=== PATIENT | female | born 1960 | race African-American/Black ===

== ENCOUNTER → 2016-08-23 | Outpatient (CLI) | payer BC ==
[~2016-08-23] MED LIST: COLACE 100100 MG/CAP PO; DEXILANT60 MG PO; HCTZ12.5TAB PO; LIPITOR 10MG10 MG PO; MULTIPLE VITAMI1 CAP PO; NORCO 325 MG-51 TAB PO; PRINIVIL10 MG PO; TYLENOL 500MG500 MG PO; VITAMIN D31000 I1; VITAMINE200; VTAMINC250TA
== END ==
LOC: MC.RAD 14:39
DX: Z12.31 Encounter for screening mammogram for malignant neoplasm of breast (principal)

== ENCOUNTER → 2017-01-12 | Outpatient (CLI) | payer BC ==
[2017-01-12 14:49] LABS: HEMATOCRIT 39.1 % (37.0-47.0); HEMOGLOBIN 13.6 g/dl (12.5-16.0); MEAN CELL VOLUME 96 fl (80.0-100.0); MEAN CORPUSCULAR HEMOGLOBIN 33 pg (27.0-31.0); MEAN CORPUSCULAR HGB CONC 35 g/dl (33.0-37.0); MEAN PLATELET VOLUME 10.3 fl (7.4-10.4); PLATELET COUNT 231 K/mm3 (130-400); RED BLOOD COUNT 4.09 M/mm3 (4.10-5.30); REDCELL DISTRIBUTION WIDTH-CV 12.8 % (11.5-14.5); WHITE BLOOD COUNT 6.3 K/mm3 (4.8-10.8)
[2017-01-12 15:02] LABS: ADJUSTED CALCIUM 9.6 mg/dL (8.4-10.2); ALBUMIN 4.6 gm/dL (3.5-5.0); BILIRUBIN,TOTAL 0.9 mg/dL (0.0-1.0); CALCIUM 10.1 mg/dL (8.4-10.2); CREATININE, serum 0.49 mg/dL (0.52-1.25); POTASSIUM 3.6 mmol/L (3.4-5.0); TOTAL PROTEIN 8.2 gm/dL (6.4-8.2)
== END ==
LOC: COL.RAD 14:19
PROVIDERS: Internal Medicine
DX: K86.89 Other specified diseases of pancreas (principal); E27.8 Other specified disorders of adrenal gland; Q63.2 Ectopic kidney; K76.0 Fatty (change of) liver, not elsewhere classified; M47.816 Spondylosis without myelopathy or radiculopathy, lumbar region; M48.07 Spinal stenosis, lumbosacral region; Z90.710 Acquired absence of both cervix and uterus
CPT/HCPCS: Q9967

== ENCOUNTER → 2017-01-19 | Outpatient (CLI) | payer BC, OTHER ==
[2017-01-19] VITALS (19 sets, daily range): BP systolic 104–3119; BP diastolic 36–94; PULSE 52–89
[~2017-01-19] VITALS: Ht 165.1 cm; Wt 97.0 kg
[2017-01-19 07:51] LABS: BASO % 0.8 % (0.0-2.0); EOS # 0.1 (0.0-0.7); EOS % 1.9 % (0-4.0); GRAN # 2.6 (1.4-6.5); GRAN % 54.4 % (42.2-75.2); HEMATOCRIT 39.9 % (37.0-47.0); HEMOGLOBIN 13.7 g/dl (12.5-16.0); LYMPH # 1.7 (1.2-3.4); LYMPH % 35.6 % (20.0-51.0); MEAN CELL VOLUME 98 fl (80.0-100.0); MEAN CORPUSCULAR HEMOGLOBIN 34 pg (27.0-31.0); MEAN CORPUSCULAR HGB CONC 34 g/dl (33.0-37.0); MEAN PLATELET VOLUME 10.6 fl (7.4-10.4); MONO # 0.3 (0.1-0.6); MONO % 6.9 % (1.7-9.3); PLATELET COUNT 241 K/mm3 (130-400); RED BLOOD COUNT 4.07 M/mm3 (4.10-5.30); REDCELL DISTRIBUTION WIDTH-CV 12.7 % (11.5-14.5); WHITE BLOOD COUNT 4.8 K/mm3 (4.8-10.8)
[2017-01-19 07:53] LABS: INR 1.2 (0.8-3.0); PROTHROMBIN TIME 12.8 SECONDS (9.7-12.8)
[2017-01-19 07:58] LABS: CREATININE, serum 0.49 mg/dL (0.52-1.25)
== END ==
LOC: COL.RAD 06:25
PROVIDERS: Internal Medicine
DX: C25.1 Malignant neoplasm of body of pancreas (principal); Z90.710 Acquired absence of both cervix and uterus; Z80.42 Family history of malignant neoplasm of prostate
CPT/HCPCS: J2250; J3010

== ENCOUNTER 2017-03-22 06:29 | Day surgery (SDC) | payer BC ==
[~2017-03-22] VITALS: Ht 165.1 cm; Wt 93.4 kg
[~2017-03-22 06:29] MED LIST changes: -COLACE 100100 MG/CAP PO; -MULTIPLE VITAMI1 CAP PO; -TYLENOL 500MG500 MG PO; -VITAMIN D31000 I1; -VITAMINE200; -VTAMINC250TA
[2017-03-22 06:51] VITALS: BP 125/75; PULSE 66; TEMP 98.1
[2017-03-22] MEDS ORDERED: VTAMINC250TA (07:29)
[2017-03-22] MEDS ORDERED: TYLENOL 500MG500 MG PO (07:29)
[2017-03-22] MEDS ORDERED: VITAMINE200 (07:30)
[2017-03-22] MEDS ORDERED: VITAMIN D31000 I1 (07:31)
[2017-03-22] MEDS ORDERED: MULTIPLE VITAMI1 CAP PO (07:31)
[2017-03-22 09:05] VITALS: BP 132/59; PULSE 57; TEMP 97.4
[2017-03-22 09:15] VITALS: BP 156/72; PULSE 57
[2017-03-22] MEDS ORDERED: NORCO 325 MG-51 TAB PO (09:18)
[2017-03-22] MEDS ORDERED: COLACE 100100 MG/CAP PO (09:19)
[2017-03-22 09:30] VITALS: BP 140/82; PULSE 55
[2017-03-22 09:45] VITALS: BP 136/71; PULSE 60
== END 2017-03-22 10:26 | disposition home or self-care (01) ==
LOC: SDCO 06:29
DX: C25.9 Malignant neoplasm of pancreas, unspecified (principal); E11.9 Type 2 diabetes mellitus without complications; Z80.6 Family history of leukemia; Z80.42 Family history of malignant neoplasm of prostate; Z80.0 Family history of malignant neoplasm of digestive organs
CPT/HCPCS: C1788; J1644; J2704; J3010; J7030

== ENCOUNTER → 2017-10-18 | Outpatient (CLI) | payer BC ==
[~2017-10-18] MED LIST changes: +COLACE 100100 MG/CAP PO; +MULTIPLE VITAMI1 CAP PO; +TYLENOL 500MG500 MG PO; +VITAMIN D31000 I1; +VITAMINE200; +VTAMINC250TA
== END ==
LOC: MC.RAD 14:40
DX: Z12.31 Encounter for screening mammogram for malignant neoplasm of breast (principal)

== ENCOUNTER → 2017-12-07 | Outpatient (CLI) | payer BC | LOC: COL.VAS 10:12 | DX: C25.1 Malignant neoplasm of body of pancreas (principal); M79.89 Other specified soft tissue disorders ==

== ENCOUNTER → 2018-07-05 | Outpatient (CLI) | payer BC | LOC: COL.RAD 14:00 | DX: C25.1 Malignant neoplasm of body of pancreas (principal); C78.6 Secondary malignant neoplasm of retroperitoneum and peritoneum; C77.5 Secondary and unspecified malignant neoplasm of intrapelvic lymph nodes; R18.0 Malignant ascites | CPT/HCPCS: Q9967 ==

== ENCOUNTER → 2018-07-13 | Outpatient (CLI) | payer BC ==
--- NOTE | 2018-07-12 08:56 | NUR ---
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
[~2018-07-13] VITALS: Ht 165.1 cm; Wt 92.5 kg
[~2018-07-13] MED LIST changes: +CIPRO 500MG TA500 MG PO; +GLUCOPHAGE1000 MG PO; +MORPHINE 1515 MG/TAB PO; +VITAMIN E1000 U/CAP PO; -VTAMINC250TA; +VTAMINC250TA PO
[2018-07-13 11:45] VITALS: BP 136/78; PULSE 92
[2018-07-13 12:32] VITALS: BP 155/91; PULSE 71
--- NOTE | 2018-07-13 12:50 | NUR ---
Pt out to car per ambulation. Denies pain at this time. Daughter here to pick pt up.
== END ==
LOC: COL.RAD 11:24
DX: C25.9 Malignant neoplasm of pancreas, unspecified (principal); R18.8 Other ascites

== ENCOUNTER → 2018-08-10 | Outpatient (CLI) | payer BC ==
[~2018-08-10] VITALS: Ht 165.1 cm; Wt 98.2 kg
[~2018-08-10] MED LIST changes: +EXCEDRIN1 TAB PO; +MOTRIN 400400 MG/TAB PO
[2018-08-10 09:26] VITALS: BP 130/74; PULSE 113
[2018-08-10 10:40] VITALS: BP 152/89; PULSE 97
== END ==
LOC: COL.RAD 09:09
DX: C25.1 Malignant neoplasm of body of pancreas (principal)

== ENCOUNTER 2018-08-16 14:06 | Emergency (ER) | payer BC ==
[~2018-08-16] VITALS: Ht 165.1 cm; Wt 94.4 kg
[2018-08-16 14:18] VITALS: TEMP 99.1
[2018-08-16 15:06] LABS: COLLECTION METHOD CLEAN CATCH
[2018-08-16 15:14] LABS: MUCOUS Present /lpf; PH 5 (5-8); SQUAMOUS EPITHELIAL 0-2 /hpf; URINE APPEARANCE Clear; URINE BACTERIA None Seen /hpf; URINE BILIRUBIN Negative (NEGATIVE); URINE BLOOD Negative (NEGATIVE); URINE COLOR Yellow; URINE GLUCOSE Negative (NEGATIVE); URINE KETONE Trace (NEGATIVE); URINE LEUKOCYTE ESTERASE 1+ (NEGATIVE); URINE NITRATE Negative (NEGATIVE); URINE PROTEIN(semi-quant) Negative (NEGATIVE); URINE RBC 0-2 /hpf
[2018-08-16 15:22] LABS: BASO % 0.5 % (0.0-2.0); EOS # 0.1 (0.0-0.7); EOS % 0.8 % (0-4.0); GRAN # 4.3 (1.4-6.5); GRAN % 65.9 % (42.2-75.2); HEMOGLOBIN 11.4 g/dl (12.5-16.0); LYMPH # 1.4 (1.2-3.4); LYMPH % 21.6 % (20.0-51.0); MEAN CELL VOLUME 97 fl (80.0-100.0); MEAN CORPUSCULAR HEMOGLOBIN 31 pg (27.0-31.0); MEAN CORPUSCULAR HGB CONC 32 g/dl (33.0-37.0); MEAN PLATELET VOLUME 9.3 fl (7.4-10.4); MONO # 0.7 (0.1-0.6); MONO % 10.7 % (1.7-9.3); PLATELET COUNT 325 K/mm3 (130-400); RED BLOOD COUNT 3.65 M/mm3 (4.10-5.30); REDCELL DISTRIBUTION WIDTH-CV 14.5 % (11.5-14.5)
[2018-08-16 15:23] LABS: HEMATOCRIT 35.5 % (37.0-47.0)
[2018-08-16 15:39] LABS: ALANINE AMINOTRANSFERASE 9 U/L (9-52); ALBUMIN 3.3 gm/dL (3.5-5.0); ALKALINE PHOSPHATASE 97 U/L (50-136); ANION GAP 8 mmol/L (7-16); AST,SGOT 24 U/L (15-37); BILIRUBIN,TOTAL 0.3 mg/dL (0.0-1.0); BLOOD UREA NITROGEN 9 mg/dL (7-17); C-REACTIVE PROTEIN 8.1 mg/dL (0.0-0.9); CALCIUM 9.3 mg/dL (8.4-10.2); CARBON DIOXIDE 27 mmol/L (22-30); CHLORIDE 99 mmol/L (98-107); CREATININE, serum 0.48 mg/dL (0.52-1.25); GLUCOSE 98 mg/dL (74-106); LIPASE 29 U/L (23-300); POTASSIUM 4.2 mmol/L (3.4-5.0); SODIUM 134 mmol/L (137-145); TOTAL PROTEIN 7.2 gm/dL (6.4-8.2)
[2018-08-16 15:51] LABS: TROPONIN-I < 0.012 ng/mL (0.000-0.035)
[2018-08-16 18:00] VITALS: BP 118/77; PULSE 99
== END 2018-08-16 18:13 | disposition home or self-care (01) ==
LOC: COL.ER 14:06
PROVIDERS: Emergency Medicine
DX: C25.9 Malignant neoplasm of pancreas, unspecified (principal); C79.9 Secondary malignant neoplasm of unspecified site; K86.81 Exocrine pancreatic insufficiency; E11.9 Type 2 diabetes mellitus without complications; I10 Essential (primary) hypertension; Z79.1 Long term (current) use of non-steroidal anti-inflammatories (NSAID); Z79.84 Long term (current) use of oral hypoglycemic drugs; Z87.891 Personal history of nicotine dependence; Z87.19 Personal history of other diseases of the digestive system
CPT/HCPCS: J1170; J2405; Q9967

== ENCOUNTER → 2018-08-21 | Outpatient (CLI) | payer BC ==
[~2018-08-21] VITALS: Ht 165.1 cm; Wt 97.7 kg
[2018-08-21 11:37] VITALS: BP 125/83; PULSE 121
[2018-08-21 13:25] VITALS: BP 127/85; PULSE 107
[2018-08-21 13:37] LABS: PERITONEAL -POLYMORPHONUCLEAR 16.3 % (0-25); PERITONEAL FLUID RBC 7000 /mm3 (0-0)
--- NOTE | 2018-08-21 13:40 | NUR ---
pt out to car per wheelchair. Reports feeling better. Verbalized understanding of discharge instructions. Pt did not want a copy of instructions.
== END ==
LOC: COL.RAD 11:25
PROVIDERS: Internal Medicine
DX: C25.1 Malignant neoplasm of body of pancreas (principal)

== ENCOUNTER 2018-09-05 13:58 | Inpatient (IN) | payer BC ==
[~2018-09-05] VITALS: Ht 167.6 cm; Wt 97.6 kg
[2018-09-05 14:58] LABS: BASO % 0.2 % (0.0-2.0); EOS % 0.2 % (0-4.0); GRAN # 7.2 (1.4-6.5); GRAN % 70.4 % (42.2-75.2); HEMOGLOBIN 10.3 g/dl (12.5-16.0); LYMPH # 0.8 (1.2-3.4); LYMPH % 7.6 % (20.0-51.0); MEAN CELL VOLUME 95 fl (80.0-100.0); MEAN CORPUSCULAR HEMOGLOBIN 31 pg (27.0-31.0); MEAN CORPUSCULAR HGB CONC 32 g/dl (33.0-37.0); MEAN PLATELET VOLUME 9.4 fl (7.4-10.4); MONO % 19.1 % (1.7-9.3); PLATELET COUNT 325 K/mm3 (130-400); RED BLOOD COUNT 3.37 M/mm3 (4.10-5.30); REDCELL DISTRIBUTION WIDTH-CV 15.7 % (11.5-14.5)
[2018-09-05 15:00] LABS: ALANINE AMINOTRANSFERASE 8 U/L (9-52); ALBUMIN 3.4 gm/dL (3.5-5.0); ALKALINE PHOSPHATASE 150 U/L (50-136); ANION GAP 13 mmol/L (7-16); AST,SGOT 25 U/L (15-37); BILIRUBIN,TOTAL 0.3 mg/dL (0.0-1.0); BLOOD UREA NITROGEN 59 mg/dL (7-17); CALCIUM 9.1 mg/dL (8.4-10.2); CARBON DIOXIDE 20 mmol/L (22-30); CHLORIDE 91 mmol/L (98-107); GLUCOSE 100 mg/dL (74-106); SODIUM 124 mmol/L (137-145); TOTAL PROTEIN 7.1 gm/dL (6.4-8.2)
[2018-09-05 15:03] LABS: POTASSIUM 6.7 mmol/L (3.4-5.0)
[2018-09-05 15:04] LABS: CREATININE, serum 6.15 mg/dL (0.52-1.25)
[2018-09-05 15:13] LABS: TROPONIN-I < 0.012 ng/mL (0.000-0.035)
[2018-09-05 15:24] LABS: COLLECTION METHOD CLEAN CATCH
[2018-09-05 15:33] LABS: HYALINE CAST >12 /lpf; MUCOUS Present /lpf; PH 5 (5-8); SQUAMOUS EPITHELIAL 0-2 /hpf; URINE APPEARANCE Cloudy; URINE BACTERIA None Seen /hpf; URINE BILIRUBIN Negative (NEGATIVE); URINE BLOOD 2+ (NEGATIVE); URINE COLOR Amber; URINE GLUCOSE Negative (NEGATIVE); URINE KETONE Negative (NEGATIVE); URINE LEUKOCYTE ESTERASE Trace (NEGATIVE); URINE NITRATE Negative (NEGATIVE); URINE PROTEIN(semi-quant) 2+ (NEGATIVE); URINE UROBILINOGEN Negative (NEGATIVE); URINE WBC 0-2 /hpf
--- NOTE | 2018-09-05 16:35 | NUR ---
PATIENT ARRIVED TO ICU ROOM 4 VIA STRETCHER. SHE WAS ABLE TO STAND AND TRANSFER TO THE BED. SHE STATES HER PAIN IN HER ABDOMEN IS RELIEVED WHEN SHE STANDS UP. SHE WAS PLACED ON THE X RAY EXAMINER OF AIRCRAFT. VSS AT THIS TIME. IV TO INT. AT BEDSIDE. PATIENT ORIENTED TO ROOM. ICU RULES REVIEWED.
[2018-09-05 16:50] VITALS: BP 99/56; PULSE 106; TEMP 97.6
[2018-09-05 17:49] LABS: CALCIUM 8.5 mg/dL (8.4-10.2); POTASSIUM 5.5 mmol/L (3.4-5.0)
[2018-09-05 17:51] LABS: CREATININE, serum 5.66 mg/dL (0.52-1.25)
[2018-09-05 17:54] LABS: CREATININE, serum 5.66 mg/dL (0.52-1.25)
[2018-09-05 18:04] LABS: FRACTIONAL EXCRETION OF NA+ 0.5 %
[2018-09-05 18:05] LABS: URINE PROTEIN:CREAT RATIO 0.8 (0.00-0.14)
--- NOTE | 2018-09-05 19:25 | NUR ---
Bedside report received from HUMZA Begum. Patient care received.
--- NOTE | 2018-09-05 19:30 | NUR ---
REPORT GIVEN TO HUMZA ORONA.
[2018-09-05 20:00] VITALS: BP 82/64; PULSE 108; TEMP 97.8
--- NOTE | 2018-09-05 21:06 | NUR ---
Patientreporting 10/10 abdominal pain. Patient audibly moaning. Reports not tolerating lying down and has been repeatedly standing up and sitting down in attempt to find a more comfortable position. Spoke with Hospitalist and received order to give IV fentanyl X 1 dose. Will continue to monitor.
[2018-09-05 21:50] VITALS: BP 94/63; PULSE 106
--- NOTE | 2018-09-05 23:45 | NUR ---
Called E-ICU to report that patient is complaining of pain around urethra due to catheter. Patient reports it feels like it's leaking. This nurse has not observed any leakage. Patient has been unable to find a comfortable position due to catheter pain. Has asked this nurse multiple times about removing catheter. Explained to patient the importance of the catheter to have accurate urine measurments. Awaiting orders.
[2018-09-06] VITALS (18 sets, daily range): BP systolic 60–116; BP diastolic 42–96; PULSE 69–134; TEMP 97.6–97.9
[2018-09-06 00:49] LABS: CALCIUM 8.5 mg/dL (8.4-10.2); POTASSIUM 5.6 mmol/L (3.4-5.0)
[2018-09-06 00:51] LABS: CREATININE, serum 5.21 mg/dL (0.52-1.25)
--- NOTE | 2018-09-06 01:00 | NUR ---
Did not notify provider regarding critical creatine result as lab value trending downwards.
--- NOTE | 2018-09-06 01:03 | NUR ---
Removed marquez catheter; will wait one one then will replace and use lidocaine jelly 2%. Order per Dr. Smith.
--- NOTE | 2018-09-06 01:30 | NUR ---
Called E-ICU to report BMP potassium results. Also requested a stool softner or suppository to assist with patient having a bowel movement. Reported that patient complaining of sharp upper abdominal pain. Patient states pain feels like "gas pains". Assisted to the bedside commode.
--- NOTE | 2018-09-06 02:35 | NUR ---
16 F marquez catheter placed. Tolerated procedure well.
--- NOTE | 2018-09-06 03:30 | NUR ---
Patient does not tolerate lying down. Is observered standing up and sitting down frequently in an attempt to find a comfortable position. Path is cleared as much as possible and independent with transfers. PRN pain medication administered as needed.
--- NOTE | 2018-09-06 03:30 | NUR ---
Patient continues to complain of intermittent buring around catheter and aching across abdomen. Small amount of leakage of urine noted around marquez catheter. PRN Fentanyl administered.
--- NOTE | 2018-09-06 03:50 | NUR ---
Called E-pharmacist to clarify pyrididine order. Pharmacist stated standard dose is 95 mg. E-care sent written order for 200 mg. Called E-ICU to get order re-written. Awaiting new orders.
[2018-09-06 06:46] LABS: HEMATOCRIT 33.4 % (37.0-47.0); HEMOGLOBIN 10.8 g/dl (12.5-16.0); MEAN CELL VOLUME 95 fl (80.0-100.0); MEAN CORPUSCULAR HEMOGLOBIN 31 pg (27.0-31.0); MEAN CORPUSCULAR HGB CONC 32 g/dl (33.0-37.0); MEAN PLATELET VOLUME 9.3 fl (7.4-10.4); PLATELET COUNT 339 K/mm3 (130-400); RED BLOOD COUNT 3.53 M/mm3 (4.10-5.30); REDCELL DISTRIBUTION WIDTH-CV 15.8 % (11.5-14.5)
[2018-09-06 07:02] LABS: ALBUMIN 3.2 gm/dL (3.5-5.0); BILIRUBIN,TOTAL 0.4 mg/dL (0.0-1.0); CALCIUM 8.3 mg/dL (8.4-10.2); PHOSPHOROUS 5.8 mg/dL (2.5-4.5); TOTAL PROTEIN 7.1 gm/dL (6.4-8.2)
[2018-09-06 07:15] LABS: CREATININE, serum 4.52 mg/dL (0.52-1.25)
[2018-09-06 07:16] LABS: POTASSIUM 5.9 mmol/L (3.4-5.0)
--- NOTE | 2018-09-06 07:30 | NUR ---
Report received from HUMZA Lennon. Pt sitting on bedside commode at this time. CAll light in reach.
--- NOTE | 2018-09-06 08:00 | NUR ---
Assessment completed. Pt back to chair. Remains on levophed gtt. Pt states pain is still 7/10 but does not want pain medication at this time. Warm blanket offered to go over abdomen for comfort. Discussed plan of care re: levophed gtt and urine output. Pt states understanding. Call light in reach.
--- NOTE | 2018-09-06 08:07 | NUR ---
Levophed dosage adjusted for weight ion exchange operator 24 hrs.
[2018-09-06 08:50] LABS: BAND 16 % (0-10); LYMPHOCYTE 7 % (20.0-51.0); NEUTROPHILS 65 % (42.0-75.2); PLATELET ESTIMATE NORMAL (NORMAL)
--- NOTE | 2018-09-06 10:06 | NUR ---
Initial visit; Patient thanked Chemical Engineering Professor for offering God's blessings and keeping her in Chemical Engineering Professor's prayers.
--- NOTE | 2018-09-06 11:05 | NUR ---
CARLOS and SW student met with the patient and patient's , Mj, to discuss discharge plan. The patient lives in [place] with her . The patient's reports that the patient needs assistance with bathing and that she has a cane and walker. The patient's reports that he is retired and is home 31/01 and can provide the patient with assistance. SW discussed home health services. The patient's reports that they are not interested in home health at this time. The patient's PCP is Dr. Sally Hester and she receives her medications at [facility]. The patient's reports no difficulties obtaining his meds. The patient's advanced directives are in EMR. The patient plans to return home with her upon discharge. No identified needs at this time, but SW to continue to follow.
--- NOTE | 2018-09-06 11:15 | NUR ---
HUMZA Mccray from palliative care, at bedside with pt and pt's .
--- NOTE | 2018-09-06 11:45 | NUR ---
Met with pt and her at bedside. They report hearing "lots of bad news this morning". Pt did not get her chemotherapy yesterday as her blood pressure was very low and her kidneys were in renal failure. is retired and at home basically 31/01 to care for his . Lashawn was open to hearing about palliative care and what it might do for her. She is aware that chemotherapy may not ever be an option for her again. She was interested in learning about things that might help her feel better--pleurx drain, diet things she might try to help with her nutrition, support from home health and even support from hospice care. She did seem determined to try to get better--"make her kidneys happy again" but also understands that this may not work out for her. Will continue to follow along and plan to see tomorrow.
--- NOTE | 2018-09-06 12:00 | NUR ---
Assessment completed. Continue to titrate levophed gtt down. Pt's at bedside. Updated on pt status and plan of care. All questions answered to their satisfaction. Pt has naps for short periods. STates warm blanket helps with abd pain.
--- NOTE | 2018-09-06 16:00 | NUR ---
Assessment completed. Pt given [place] prn for abd pain. Pt had some n/v soon after pain medication given. Zofran given and warm washcloth for nausea. Pt remains in chair. Titrating levophed gtt up. Pt does not want to sit in bed at this time. Warm blanket placed over abd for comfort. Pt's at bedside. Will monitor.
--- NOTE | 2018-09-06 19:30 | NUR ---
Patient taken to CT. Radiology and RN present.
--- NOTE | 2018-09-06 19:30 | NUR ---
Pt continues to have pain and n/v. Reported pt status to alexa Goyal INSURANCE ANALYST.
--- NOTE | 2018-09-06 19:48 | NUR ---
Received telephone call from Dr. Norman regarding CT scan. Updated hospitalist.
--- NOTE | 2018-09-06 19:50 | NUR ---
Hospitalist at bedside to see patient and discuss care with patient and family.
--- NOTE | 2018-09-06 20:00 | NUR ---
Report given to HUMZA Lennon.
--- NOTE | 2018-09-06 20:05 | NUR ---
Patient moaning loudly in pain and frequently shouting "help me"!. Very restless and not able to find a comfortable position. Stands up and moves from bed to chair and back frequently in attempt to find comfort. Hospitalst on the unit and aware and gave orders for PRN dilauded.
--- NOTE | 2018-09-06 21:00 | NUR ---
PRN dilaudid and ativan given which have been effective for pain and anxiety. Patient resting in chair and napping on and off. Will continue to monitor.
--- NOTE | 2018-09-06 22:15 | NUR ---
Dr. Rider here to review chart and see patient. Physician called patient's to update regarding CT scan results and patient prognosis.
--- NOTE | 2018-09-06 23:15 | NUR ---
Continues to have intermittent nausua and frequently having small amounts of watery yellow emesis. Has emesis basin at bedside. PRN zofran administered.
[2018-09-07] VITALS: BP 103/60; PULSE 81; TEMP 98.2
[2018-09-07 00:33] VITALS: BP 107/30; PULSE 88
--- NOTE | 2018-09-07 00:55 | NUR ---
Called E-ICU with results of lactic acid. No further orders at this time.
[2018-09-07 01:13] VITALS: BP 81/68; PULSE 88
--- NOTE | 2018-09-07 02:30 | NUR ---
Bedbath provided and assisted from recliner to bed. Resting comfortably at this time.
--- NOTE | 2018-09-07 03:05 | NUR ---
sterile supply technician at bedside to draw labs. Patient becoming restless in bed and reported being "uncomfortable". Accepted offer for pain medicaiton; prn dilauded administerd.
--- NOTE | 2018-09-08 13:25 | NUR ---
SW attended clinical rounds. The patient was switched to comfort measures on 09/07. The patient then today, 09/08, at 1215. Machining And Assembly Supervisor was notified and [facility] contacted. The patient was not a candidate for [facility]. The patient's preferred [facility]. SW contacted the home. No additional needs at this time.
--- NOTE | 2018-09-08 13:29 | NUR ---
Have spent yesterday and today working with , Mj, and daughter at intervals as pt went through the paracentesis for comfort and into this morning as family has now accepted comfort care for pt. They were in the process of discussing transition to [facility] when pt suddenly opened her eyes began to breathe very agonally before passing with both and daughter at bedside. Much support was provided and time was spent with family. Comfort quilt had been provided earlier this morning. Primary nurse Shy also at bedside at time of .
[2018-09-08 17:29] LABS: ARTERIAL BLD GAS O2 SATURATION 78.6 % (92-100); ARTERIAL BLD GAS TCO2 CT 16.8; ARTERIAL BLOOD GAS BASE EXCESS -9.4 (-2-2); ARTERIAL BLOOD GAS HCO3 15.8 meq/L (22-26); ARTERIAL BLOOD GAS PCO2 32.3 mmHg (35-45); ARTERIAL BLOOD GAS pH 7.31 (7.35-7.45)
[2018-09-08 17:31] LABS: ARTERIAL BLOOD GAS PO2 39.2 mmHg (80-100)
== END 2018-09-08 13:40 | disposition expired | DRG 436 ==
LOC: COL.ER 13:58 → ICU 15:48
PROVIDERS: Emergency Medicine; Internal Medicine Nephrology; Nurse Practitioner Family; Physician Assistant; ADMIT Hospitalist
PROC: 0W9G3ZZ Drainage of Peritoneal Cavity, Percutaneous Approach (ICD-10-PCS; principal; 2018-09-07)
DX: C25.1 Malignant neoplasm of body of pancreas (principal); N17.9 Acute kidney failure, unspecified; R65.10 Systemic inflammatory response syndrome (SIRS) of non-infectious origin without acute organ dysfunction; R18.8 Other ascites; K55.8 Other vascular disorders of intestine; C78.6 Secondary malignant neoplasm of retroperitoneum and peritoneum; I95.9 Hypotension, unspecified; E87.5 Hyperkalemia; Z66 Do not resuscitate; Z51.5 Encounter for palliative care; R11.2 Nausea with vomiting, unspecified; E78.5 Hyperlipidemia, unspecified; E11.9 Type 2 diabetes mellitus without complications; Z88.5 Allergy status to narcotic agent; Z87.891 Personal history of nicotine dependence
CPT/HCPCS: 99222-AI; 99239; J0692; J1170; J1644; J1815; J2060; J2270; J2405; J2543; J2765; J3010; J7030; J7060